=== PATIENT | male | born 1945 | race Two or more races ===

== ENCOUNTER 2019-07-14 10:04 | Day surgery (SDC) | payer MEDICARE, OTHER ==
[~2019-07-14] VITALS: Ht 172.7 cm; Wt 85.2 kg
[~2019-07-14 10:04] MED LIST: BENADRYL25 MG; DEXL60CA3 PO; HYDCHL25 PO; LOSA50 PO; TRAM50
== END 2019-07-14 12:10 | disposition home or self-care (01) ==
LOC: ORSCSDS 10:04
PROVIDERS: Student in an Organized Health Care Education/Training Program
PROC: 0DB58ZX Excision of Esophagus, Via Natural or Artificial Opening Endoscopic, Diagnostic (ICD-10-PCS; principal; 2019-07-14 11:30)
PROC: 0DB98ZX Excision of Duodenum, Via Natural or Artificial Opening Endoscopic, Diagnostic (ICD-10-PCS; principal; 2019-07-14 11:30)
PROC: 0DB68ZX Excision of Stomach, Via Natural or Artificial Opening Endoscopic, Diagnostic (ICD-10-PCS; principal; 2019-07-14 11:30)
DX: K22.70 Barrett's esophagus without dysplasia (principal); K31.7 Polyp of stomach and duodenum; K31.89 Other diseases of stomach and duodenum; K29.70 Gastritis, unspecified, without bleeding; K44.9 Diaphragmatic hernia without obstruction or gangrene; K21.9 Gastro-esophageal reflux disease without esophagitis; I10 Essential (primary) hypertension; Z79.899 Other long term (current) drug therapy
CPT/HCPCS: 88305; 88342; J2704; J7120